=== PATIENT | male | born 1995 | race Caucasian/White ===

== ENCOUNTER 2020-07-16 17:04 | Emergency (ER) | payer OTHER, SELFPAY | END 2020-07-16 19:32 | disposition left against medical advice (07) | LOC: HO.ED 19:33 | PROVIDERS: Emergency Provider Emergency Medicine | DX: Z20.828 Contact with and (suspected) exposure to other viral communicable diseases (principal) ==

== ENCOUNTER 2020-07-17 08:28 | Outpatient (REF) | payer OTHER, SELFPAY ==
[2020-07-17 08:39] LABS: COVID-19 Test Positive (Negative)
== END 2020-07-17 08:29 | disposition home or self-care (01) ==
LOC: HO.LAB 08:28
PROVIDERS: Visit Provider Internal Medicine
DX: Z20.828 Contact with and (suspected) exposure to other viral communicable diseases (principal)
CPT/HCPCS: 87635; C9803

== ENCOUNTER 2021-11-20 08:37 | Outpatient (REF) | payer OTHER, SELFPAY ==
--- NOTE | ~2021-11-20 | XR_ITS ---
EXAMINATION: XR CHEST 2 VIEWS CLINICAL INFORMATION: History of sarcoidosis. COMPARISON: Chest radiograph dated 12/25/2020. TECHNIQUE: Frontal and lateral views of the chest were obtained. FINDINGS: The heart, great vessels, pulmonary vasculature and mediastinum are normal. The lungs show no focal infiltrate, effusion or pneumothorax. No abnormal interstitial markings noted. There is no mass, nodule or thoracic lymphadenopathy. There is no acute osseous abnormality. XR/XR chest 2V IMPRESSION: No active cardiopulmonary disease.
[2021-11-20 09:27] LABS: Estimated Average Glucose 103 mg/dL; Hemoglobin A1c % 5.2 %
[2021-11-20 09:51] LABS: Alanine Aminotransferase 145 U/L (0-40); Albumin Level 4.8 g/dL (3.5-5.0); Alkaline Phosphatase 76 U/L (39-117); Anion Gap 13 (12-20); Aspartate Amino Transferase 75 U/L (5-37); Bilirubin Total 1.4 mg/dL (0.0-1.0); Blood Urea Nitrogen 10 mg/dL (9-16); C Reactive Protein 0.12 mg/dL (< or = 0.50); Calcium 10.6 mg/dL (8.4-10.2); Carbon Dioxide 29 mmol/L (22-29); Chloride 101 mmol/L (96-108); Cholesterol 260 mg/dL; Estimated Glomerular Filt Rate > 60; Glucose Fasting 95 mg/dL (60-99); HDL Cholesterol 42 mg/dL; LDL Cholesterol Calculated 177 mg/dl; Potassium 4.6 mmol/L (3.3-5.1); Sodium 138 mmol/L (135-145); Total Protein 8.1 g/dL (6.5-8.0); Triglycerides 209 mg/dL
[2021-11-20 10:06] LABS: Erythrocyte Sedimentation Rate 3 MM/HR (0-15)
[2021-11-20 10:11] LABS: TSH reflex Free T4 49.32 uIU/mL (0.32-4.0)
[2021-11-20 11:13] LABS: Free T4 (Free Thyroxine) 0.85 ng/dL (0.71-1.85)
[2021-11-23 12:42] LABS: Thyroid Peroxidase Antibodies >900 IU/mL (<9)
[2021-11-25 13:56] LABS: Angiotensin Converting Enzyme 42.6 U/L (9-67)
== END 2021-11-20 08:38 | disposition home or self-care (01) ==
LOC: HO.LAB 08:37
PROVIDERS: PCP Physician Assistant; Visit Provider Physician Assistant
DX: E03.9 Hypothyroidism, unspecified (principal); D86.0 Sarcoidosis of lung; Z13.29 Encounter for screening for other suspected endocrine disorder; Z13.220 Encounter for screening for lipoid disorders
CPT/HCPCS: 36415; 71046; 80053; 80061; 82164; 83036; 84439; 84443; 85652; 86140; 86376

== ENCOUNTER → 2022-01-05 15:04 | Outpatient (BNVA) | payer OTHER, SELFPAY | PROVIDERS: PCP Physician Assistant; Visit Provider Internal Medicine Endocrinology, Diabetes & Metabolism | DX: E03.9 Hypothyroidism, unspecified (principal) ==

== ENCOUNTER 2022-07-06 16:53 | Outpatient (REF) | payer OTHER, SELFPAY ==
[2022-07-06 18:09] LABS: Free T4 (Free Thyroxine) 1.26 ng/dL (0.71-1.85); Thyroid Stimulating Hormone 3.29 uIU/mL (0.32-4.0)
== END 2022-07-06 16:54 | disposition home or self-care (01) ==
LOC: HO.LAB 16:53
PROVIDERS: PCP Physician Assistant; Visit Provider Internal Medicine Endocrinology, Diabetes & Metabolism
DX: E03.9 Hypothyroidism, unspecified (principal)
CPT/HCPCS: 36415; 84439; 84443

== ENCOUNTER 2024-03-21 13:33 | Outpatient (AMB) | payer BC, SELFPAY ==
[2024-03-21 13:35] VITALS: BP 138/88; PULSE 64; O2SAT 97; BMI 32.1
--- NOTE | 2024-03-21 13:35 | A.OFFPC_ITS ---
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 Required: No Accompanied by: Self / Same As Patient Allergies penicillin V Allergy (Unknown, Verified 03/21/24 13:48) RASH Penicillins [PENICILLINS] Allergy (Unknown, Verified 03/21/24 13:48) RASH Medication List - Last Reconciled 03/21/24 by Joo Bills PA-C dextroamphetamine-amphetamine 15 mg ER (Adderall XR) 15 mg PO DAILY 28 days levothyroxine (Synthroid) 150 mcg PO DAILY 30 days Tobacco use date assessed: 11/18/21 Dental Screening Dental Screen Date: 03/21/24 Did you have a dental visit in the last 12 months?: No Did you have a dental problem in the last 6 months where you did not have access to dental care?: No Was dental information given to patient?: Yes HPI Physical Exam HPI Details Patient is a 28 year-old male here today for annual physical.? Patient has a past medical history significant for hypothyroidism, sarcoidosis, ADHD. ADHD:? He does report being diagnosed with ADHD as a child did not agree with taking medication at the time.? He struggled in school. Interval history--> He feels he is not able to focus and concentrate for what he is reading which hinders his ability to past tests.. He? has trialed Strattera 80 mg though did not feel it helped him with his attention and focus.Has found that Adderall 15 mg had been effective for him though has been off of it for awhile as he has not needed to do much academic work. 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 .. Hypothyroidism: Patient continues on 150 mcg of levothyroxine. Most recent TSH has been stable in 2021. He reports he does feel sluggish and fatigued at times. Wondering about his testosterone. .. Laboratory Tests 11/20/21 07/06/22 08:52 17:01 TSH 49.32 H 3.29 Thyroid Peroxidase Ab >900 H [facility] Medical History Pulmonary sarcoidosis Surgical History No pertinent past surgical history Family History Father No problems noted. Mother No problems noted. Brother In good health Sister In good health Son In good health Social History Housing: House Alcohol intake: current Alcohol intake frequency: holidays/special occasions only Patient Tobacco Use Status: Former Tobacco user Tobacco use type: Cigarette e-Cigarette/Vaping Use: Former Use service: No Current occupational status: employed Current occupation: [employer] Cognitive needs: No Hearing needs: No Vision needs: No Questionnaire PHQ-9 Over the last 2 weeks, how often have you been bothered by any of the following problems? 1. Little interest or pleasure in doing things: not at all 2. Feeling down, depressed, or hopeless: not at all 3. Trouble falling or staying asleep, or sleeping too much: not at all 4. Feeling tired or having little energy: not at all 5. Poor appetite or overeating: not at all 6. Feeling bad about yourself - or that you are a failure or have let yourself or your family down: not at all 7. Trouble concentrating on things, such as reading the newspaper or watching television: not at all 8. Moving or speaking so slowly that other people could have noticed. Or the opposite - being so fidgety or restless that you have been moving around a lot more than usual: not at all 9. Thoughts that you would be better off or of hurting yourself in some way: not at all Total score: 0 Depression Screening Interpretation: Negative Depression Screening Done: Yes 24359 - PHQ-9 Billing: Yes Source: Developed by Drs. Navdeep Elias, Hailey Hammer, Rahul Kurtz and colleagues, with an educational denise from [employer]. Thrive Questionnaire Date Thrive assessed: 03/21/24 I am a: Patient What is your living situation today?: I have a steady place to live Within the past 12 months, did the food you bought not last and you didn't have the money to get more?: Never true Within the past 12 months, did you worry whether your food would run out before you got money to buy more?: Never true Do you have trouble paying for medicines?: No Do you have trouble getting transportation to medical appointments?: No Do you have trouble paying your heating and electricity bill?: No Do you have trouble taking care of your child, family member or friend?: No Do you have trouble with day-to-day activities such as bathing, preparing meals, shopping, managing finances, etc.?: No Are you currently unemployed and looking for a job?: No Are you interested in more education?: No Please select the resources that you would like help with: None Currently or been in a relationship where the following occur: No concerns rep orted THRIVE Score: 0 AUDIT C Alcohol Use Questionnaire (AUDIT-C) 1. How often do you have a drink containing alcohol?: Monthly or less 2. How many drinks containing alcohol do you have on a typical day when you are drinking?: 1 or 2 3. How often do you have six or more drinks on one occasion?: Never Total Score: 1 MARIANNE-7 AMB Questionnaire MARIANNE-7 Date MARIANNE - 7 assessed: 03/21/24 Feeling nervous, anxious, or on edge: 0 = Not at all Not being able to stop or control worryin = Not at all Worrying too much about different things: 0 = Not at all Trouble relaxin = Not at all Being so restless that it is hard to sit still: 0 = Not at all Becoming easily annoyed or irritable: 0 = Not at all Feeling afraid as if something awful might happen: 0 = Not at all Total MARIANNE-7 score (0-4 normal; 5-9 mild; 10-14 moderate; 15-21 severe): 0 Source: Developed by Drs. Navdeep Elias, Hailey Hammer, Rahul Kurtz and colleagues, with an educational denise from [employer]. MARIANNE-7 Assessment Billing MARIANNE-7 Assessment Tool: MARIANNE-7 Assessment 94786 Review of Systems Const Denies body aches, Denies chills, Denies excessive sweating, Denies fatigue, Denies fever(s) and Denies headache(s) Eyes Denies blurry vision ENT Denies dysphagia, Denies vertigo, Denies dizziness, Denies headache(s), Denies hearing loss and Denies tinnitus Card Denies chest pain, Denies chest pain with activity, Denies syncope, Denies irregular heart rhythm and Denies dyspnea Resp Denies chest congestion, Denies cough, Denies hemoptysis, Denies dyspnea and Denies wheezing GI Denies abdominal pain, Denies melena, Denies hematochezia, Denies coffee ground emesis, Denies dysphagia, Denies diarrhea, Denies nausea and Denies vomiting Denies difficulty urinating, Denies dysuria, Denies urinary frequency, Denies urinary hesitancy and Denies urinary urgency Musc Denies arthralgias, Denies limited range of motion, Denies muscle cramps and Denies muscle weakness Skin/Breast Denies rash and Denies skin ulcer Neuro Denies Abnormal speech present, Denies confusion, Denies vertigo, Denies dizziness, Denies syncope, Denies headache(s), Denies memory loss and Denies seizure-like activity Psych Denies anxiety, Denies confusion, Denies depression, Denies memory loss, Denies panic attacks and Denies paranoia Endo Denies excessive sweating, Denies fatigue, Denies flushing, Denies polydipsia and Denies polyuria Aller/Immun Denies wheezing Physical exam (Primary Care) Vital Signs: Last Vital Signs Pulse 64 03/21/24 13:35 BP 138/88 03/21/24 13:35 Pulse Ox 97 03/21/24 13:35 Oxygen Delivery Method Room Air 03/21/24 13:35 BMI result Body Mass Index 32.1 Tobacco/Smoking Status: Tobacco use Status Tobacco use date assessed 11/18/21 03/21/24 13:38 Patient Tobacco Use Status Former Tobacco user 03/21/24 13:38 Tobacco use type Cigarette 03/21/24 13:38 e-Cigarette/Vaping Use Former Use 03/21/24 13:38 PHQ-9: PHQ-9 Score PHQ-9: Total score 0 03/22/24 16:44 Depression Screening Interpretation: Negative Thrive Assessment: Date of Thrive Assessment Date Thrive assessed 03/21/24 03/21/24 13:41 Currently or been in a relationship where the following occur: No concerns reported Const General: cooperative, comfortable, no acute distress, alert and awake; No confusion Orientation/consciousness: oriented to person, oriented to place, patient oriented x3 and No confusion HENMT Head: Yes normocephalic Ears: external ears normal and TM's normal bilaterally Face and sinus: No sinus tenderness Mouth: Normal oral and palatal mucosa present and tongue normal Teeth and gingiva: dentition normal and gingiva normal Throat: Yes posterior oropharynx normal, Yes tonsils normal and Yes uvula midline Eyes Conjunctivae: conjunctivae normal Sclerae: sclerae normal Pupils: Equal, round and reactive pupils present EOM: EOMs intact bilaterally Direct Ophthalmoscopy: No no photophobia Neck Neck: Yes no lymphadenopathy, No tender and Yes no JVD Thyroid: Thyroid normal Carotids: no bruits Chest Chest palpation & inspection: no tenderness Resp Effort & Inspection: normal respiratory effort, no audible wheezes, not labored and no stridor Auscultation: no crackles, no rales, no rhonchi and no wheezes Cardio Jugular venous distension: no JVD Rate: regular rate, not bradycardic and not tachycardic Rhythm: regular rhythm Bruits: no carotid bruits Peripheral pulses: Peripheral pulses 2+ throughout GI Inspection: Yes normal to inspection, No abdominal wall ecchymosis and No visible herniation Palpation (GI): Soft to palpation, nontender, no guarding, not rigid and No hepatosplenomegaly present Auscultation: normoactive bowel sounds General: Yes no CVA tenderness Back/Spine/Pelvis Back: no CVA tenderness and No back tenderness Cervical Spine: cervical ROM normal Thoracic/Lumbar Spine: thoracic and lumbar spine normal to inspection, straight leg raise negative bilaterally, No thoraco-lumbar ROM limited and No lumbar spinal tenderness Skin Lesions: no lesions Rashes: no rashes Wounds: no wounds Neuro General: oriented to person, oriented to place, patient oriented x3, CN's II-XI intact bilaterally and No confusion Cranial nerves: Yes Equal, round and reactive pupils present and Yes Normal accommodation reflex present Cognition (Neuro): normal cognition Speech: No Abnormal speech present Gait exam (Neuro): Normal gait present Motor exam (neuro): 5/5 motor strength present throughout Extrem Right upper extremity: full ROM; no cyanosis Left upper extremity: full ROM; no cyanosis Right lower extremity: no edema Left lower extremity: no edema Psych Appearance: grossly normal Mental Status: mental status grossly normal Affect: normal affect Attitude: cooperative Thought process: Normal thought process present Assessment and Plan Assessment & Plan (1) Annual physical exam: Code(s): Z00.00 - Encounter for general adult medical examination without abnormal findi ngs (2) Hypothyroidism: Code(s): E03.9 - Hypothyroidism, unspecified Qualifiers: Hypothyroidism type: unspecified Qualified Code(s): E03.9 - Hypothyroidism, unspecified Plan: Patient continues on levothyroxine 150 mcg and feels great. Will continue to follow TSH to assure normal make adjustments in his levothyroxine dose accordingly.. (3) ADHD (attention deficit hyperactivity disorder): Code(s): F90.9 - Attention-deficit hyperactivity disorder, unspecified type Qualifiers: Attention deficit-hyperactivity disorder type: unspecified Qualified Code(s): F90.9 - Attention-deficit hyperactivity disorder, unspecified type Plan: Patient continues to use Adderall 15 mg on a p.r.n. basis to help him stay focused on his school work. (4) Borderline high cholesterol: Code(s): E78.9 - Disorder of lipoprotein metabolism, unspecified Plan: Patient's most recent lipid panels elevated likely secondary to have been uncontrolled hypothyroidism GERD will recheck lipids in 6 months. (5) Fatigue: Code(s): R53.83 - Other fatigue Qualifiers: Fatigue type: unspecified Qualified Code(s): R53.83 - Other fatigue Plan: Reports intermittent days of fatigue and sluggishness. Unclear if this is related to his thyroid dysfunction. Orders: Orders Lipid Panel 03/21/24 E78.9 - Disorder of lipoprotein metabolism, unspecified Complete Blood Count no Diff 03/21/24 Z13.1 - Encounter for screening for diabetes mellitus Testosterone, Free/Total 03/21/24 R53.83 - Other fatigue Comprehensive [place]. Panel Fast 03/21/24 Z13.1 - Encounter for screening for diabetes mellitus TSH reflex Free T4 03/21/24 E03.9 - Hypothyroidism, unspecified Medications: Refilled dextroamphetamine-amphetamine 15 mg ER (Adderall XR) 15 mg PO DAILY 28 caps 0RF 28 days F90.9 - Attention-deficit hyperactivity disorder, unspecified type Coding Level of Care Code Est Pt Prev Care 18-39y(36833) Diagnoses Annual physical exam Z00.00 Hypothyroidism, unspecified type E03.9 Hypothyroidism type: unspecified Attention deficit hyperactivity disorder (ADHD), unspecified ADHD type F90.9 Attention deficit-hyperactivity disorder type: unspecified Borderline high cholesterol E78.9 Fatigue, unspecified type R53.83 Fatigue type: unspecified Additional Codes MARIANNE-7 Assessment Billing - MARIANNE-7 Assessment Tool: MARIANNE-7 Assessment [id number] ([id number])
== END 2024-03-21 14:03 | disposition home or self-care (01) ==
PROVIDERS: PCP Physician Assistant; Visit Provider Physician Assistant
DX: Z00.00 Encounter for general adult medical examination without abnormal findings (principal); E03.9 Hypothyroidism, unspecified; F90.9 Attention-deficit hyperactivity disorder, unspecified type; E78.9 Disorder of lipoprotein metabolism, unspecified; R53.83 Other fatigue
CPT/HCPCS: 99395

== ENCOUNTER 2024-06-19 11:40 | Outpatient (REF) | payer BC, SELFPAY ==
[2024-06-19 12:26] LABS: Hematocrit 47.5 % (42.0-52.0); Mean Corpuscular HGB Conc 33.7 g/dl (31.0-36.0); Mean Corpuscular Hemoglobin 29.7 pg (27.0-33.0); Mean Corpuscular Volume 88.1 fL (80.0-98.0); Mean Platelet Volume 9.2 fL (9.4-12.4); Platelet Count 278 X10*3/uL (160-400); Red Blood Count 5.39 X10*6/uL (4.60-5.80); Red Cell Distribution Width 12.7 % (11.0-16.0)
[2024-06-19 12:53] LABS: Alanine Aminotransferase 58 U/L (0-40); Albumin Level 4.6 g/dL (3.5-5.0); Alkaline Phosphatase 69 U/L (39-117); Anion Gap 10 (12-20); Aspartate Amino Transferase 48 U/L (5-37); Bilirubin Total 0.8 mg/dL (0.0-1.0); Blood Urea Nitrogen 10 mg/dL (9-16); Carbon Dioxide 28 mmol/L (22-29); Chloride 104 mmol/L (96-108); Cholesterol 216 mg/dL (<200); Estimated Glomerular Filt Rate > 60; Glucose Fasting 86 mg/dL (60-99); HDL Cholesterol 47 mg/dL (>40); LDL Cholesterol Calculated 151 mg/dL (<100); Potassium 3.8 mmol/L (3.3-5.1); Sodium 138 mmol/L (135-145); Triglycerides 94 mg/dL (<150)
[2024-06-19 13:08] LABS: Total Protein 7.7 g/dL (6.5-8.0)
[2024-06-19 13:16] LABS: TSH reflex Free T4 2.62 uIU/mL (0.32-4.0)
[2024-06-23 16:58] LABS: Testosterone, Free 146.7 pg/mL (35.0-155.0); Testosterone, Total 635 ng/dL (250-1100)
== END 2024-06-19 11:41 | disposition home or self-care (01) ==
LOC: HO.LAB 11:40
PROVIDERS: PCP Physician Assistant; Visit Provider Physician Assistant
DX: E78.9 Disorder of lipoprotein metabolism, unspecified (principal); E03.9 Hypothyroidism, unspecified; R53.83 Other fatigue; Z13.1 Encounter for screening for diabetes mellitus
CPT/HCPCS: 36415; 80053; 80061; 84402; 84403; 84443; 85027

== ENCOUNTER 2024-06-20 14:05 | Outpatient (AMB) | payer BC, SELFPAY ==
[2024-06-20 14:17] VITALS: BP 126/80; PULSE 63; O2SAT 98; BMI 32.4
--- NOTE | 2024-06-20 14:17 | MHC.PC.OV ---
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 Patient has a past medical history significant for hypothyroidism, sarcoidosis, ADHD. ADHD:? He does report being diagnosed with ADHD as a child did not agree with taking medication at the time.? He struggled in school. Interval history--> H he had trialed Strattera 80 mg though did not feel it helped him with his attention and focus.Has found that Adderall 15 mg had been effective for him though has been off of it for awhile as he has not needed to do much academic work. 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 Hypothyroidism: Patient continues on 150 mcg of levothyroxine. Most recent TSH stable on current dose of levothyroxine. He reports he does feel sluggish and fatigued at times. Wondering about his testosterone. Laboratory Tests 11/07/19 11/20/21 06/19/24 11:20 08:52 11:56 RBC 5.39 Creatinine 1.02 AST 141 H 75 H 48 H Cholesterol 260 216 H TSH 2.62 PFSH Medical History Pulmonary sarcoidosis Surgical History No pertinent past surgical history Family History Father No problems noted. Mother No problems noted. Brother In good health Sister In good health Son In good health Social History Housing: House Alcohol intake: current Alcohol intake frequency: holidays/special occasions only Patient Tobacco Use Status: Former Tobacco user Tobacco use type: Cigarette e-Cigarette/Vaping Use: Former Use service: No Current occupational status: employed Current occupation: [employer] Cognitive needs: No Hearing needs: No Vision needs: No Questionnaire Thrive Questionnaire Date Thrive assessed: 03/21/24 Are you currently unemployed and looking for a job?: No MARIANNE-7 AMB Questionnaire MARIANNE-7 Date MARIANNE - 7 assessed: 03/21/24 Source: Developed by Drs. Navdeep Elias, Hailey Hammer, Rahul Kurtz and colleagues, with an educational denise from [employer]. Review of Systems Const Denies headache(s) Eyes Denies loss of vision ENT Denies vertigo, Denies dizziness, Denies headache(s) and Denies sore throat Card Denies chest pain, Denies leg edema and Denies lightheadedness Resp Denies cough, Denies hemoptysis and Denies wheezing GI Denies abdominal pain, Denies melena, Denies constipation, Denies diarrhea and Denies vomiting Denies dysuria, Denies urinary frequency and Denies urinary urgency Musc Denies arthralgias, Denies joint swelling, Denies numbness and Denies tingling Neuro Denies Abnormal speech present, Denies behavioral changes, Denies vertigo, Denies dizziness, Denies headache(s), Denies loss of vision, Denies memory loss, Denies numbness and Denies tingling Psych Denies anxiety, Denies behavioral changes, Denies depression, Denies memory loss and Denies panic attacks Ernst/Lymph Denies easy bleeding and Denies easy bruising Aller/Immun Denies wheezing Physical exam (Primary Care) Vital Signs: Last Vital Signs Pulse 63 06/20/24 14:17 BP 126/80 06/20/24 14:17 Pulse Ox 98 06/20/24 14:17 Oxygen Delivery Method Room Air 06/20/24 14:17 BMI result Body Mass Index 32.4 Tobacco/Smoking Status: Tobacco use Status Tobacco use date assessed 11/18/21 06/20/24 14:22 Patient Tobacco Use Status Former Tobacco user 06/20/24 14:22 Tobacco use type Cigarette 06/20/24 14:22 e-Cigarette/Vaping Use Former Use 06/20/24 14:22 Thrive Assessment: Date of Thrive Assessment Date Thrive assessed 03/21/24 06/20/24 14:22 Const General: healthy appearing, no acute distress, alert and awake Nutritional Appearance: well nourished Orientation/consciousness: oriented to person, oriented to place and oriented to time HENMT Ears: TM's normal bilaterally General nose exam: Normal nasal mucous membranes and turbinates present Eyes Conjunctivae: conjunctivae normal Sclerae: sclerae normal Pupils: Equal, round and reactive pupils present Neck Neck: Yes no lymphadenopathy and Yes no JVD Thyroid: Thyroid normal Carotids: no bruits Resp Effort & Inspection: normal respiratory effort and not tachypneic Auscultation: no crackles, no rales, no rhonchi and no wheezes Cardio Rate: regular rate Rhythm: regular rhythm Heart sounds: no murmurs and normal S1 and S2 GI Palpation (GI): Soft to palpation, nontender, no hepatomegaly and no splenomegaly Auscultation: normal bowel sounds Skin General skin exam: no rashes or lesions noted and dry skin Neuro General: oriented to person, oriented to place and oriented to time Cranial nerves: Yes Equal, round and reactive pupils present Speech: No Abnormal speech present Gait exam (Neuro): Normal gait present Motor exam (neuro): no tremor noted Extrem Right upper extremity: full ROM Left upper extremity: full ROM Right lower extremity: full ROM; no edema Left lower extremity: full ROM; no edema Psych Mental Status: mental status grossly normal Speech and movement: Normal speech and movement present Affect: normal affect Attitude: cooperative Thought process: Normal thought process present Office Procedures Flu Questionnaire Does the patient have a severe egg allergy?: No Immunizations Fluarix Triv [id number] (PF) 45 mcg (15 mcg x 3)/0.5 mL IM syringe Performing Provider: Joo Bills PA-C [facility] [place] [facility] Documented (not given) by: REGINO Purvis on 06/20/24 14:23 Reason Not Given: Patient Refused Coding Level of Care Code Est Pt Level 4 (24556) Diagnoses Attention deficit hyperactivity disorder (ADHD), unspecified ADHD type F90.9 Attention deficit-hyperactivity disorder type: unspecified Borderline high cholesterol E78.9 Hypothyroidism, unspecified type E03.9 Hypothyroidism type: unspecified Fatigue, unspecified type R53.83 Fatigue type: unspecified Assessment & Plan Assessment & Plan (1) ADHD (attention deficit hyperactivity disorder): Code(s): F90.9 - Attention-deficit hyperactivity disorder, unspecified type Category: Medical Qualifiers: Attention deficit-hyperactivity disorder type: unspecified Qualified Code(s): F90.9 - Attention-deficit hyperactivity disorder, unspecified type Plan: Patient reports he finds benefit stimulant ADHD medication. 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 (2) Borderline high cholesterol: Code(s): E78.9 - Disorder of lipoprotein metabolism, unspecified Category: Medical Plan: Most recent lipid panel showing much improved total cholesterol though still borderline high. He will work on lifestyle dietary modifications. (3) Hypothyroidism: Code(s): E03.9 - Hypothyroidism, unspecified Category: Medical Qualifiers: Hypothyroidism type: unspecified Qualified Code(s): E03.9 - Hypothyroidism, unspecified Plan: Patient's TSH has been stable on current dose of levothyroxine at 150 mcg. Will continue to follow TSH (4) Fatigue: Code(s): R53.83 - Other fatigue Category: Medical Qualifiers: Fatigue type: unspecified Qualified Code(s): R53.83 - Other fatigue Plan: Unclear what has caused patient's patient's intermittent fatigue. He still works full-time and does work out at the gym. No organic cause of his fatigue found in his labs at this time. ? Chronic fatigue syndrome Orders: Orders Influenza [id number] Immunization 06/20/24 Z23 - Encounter for immunization
== END 2024-06-20 14:41 | disposition home or self-care (01) ==
PROVIDERS: PCP Physician Assistant; Visit Provider Physician Assistant
DX: E78.9 Disorder of lipoprotein metabolism, unspecified (principal); F90.9 Attention-deficit hyperactivity disorder, unspecified type; E03.9 Hypothyroidism, unspecified; R53.83 Other fatigue

== ENCOUNTER → 2024-06-20 14:05 | Outpatient (BNVA) | payer BC, SELFPAY | PROVIDERS: PCP Physician Assistant; Visit Provider Physician Assistant | DX: F90.9 Attention-deficit hyperactivity disorder, unspecified type (principal); E78.9 Disorder of lipoprotein metabolism, unspecified; E03.9 Hypothyroidism, unspecified; R53.83 Other fatigue; Z79.899 Other long term (current) drug therapy | CPT/HCPCS: 90471 ==

== ENCOUNTER 2024-11-21 09:20 | Outpatient (AMB) | payer BC, SELFPAY ==
[2024-11-21 09:27] VITALS: BP 128/86; PULSE 67; TEMP 36.2; O2SAT 97; BMI 30.9
--- NOTE | 2024-11-21 09:27 | A.OFFPC_ITS ---
Vital Signs 11/21/24 09:27 Height 5 ft 11 in Weight 221 lb 6 oz BMI 30.9 BP 128/86 Blood Pressure Location Lt brachial Position Sitting Pulse 67 Pulse Source Pulse Oximeter Temp 97.1 F Temp Source Temporal Artery Scan Pulse Oximetry (%) 97 Oxygen Delivery Method Room Air Intake Visit Reasons: medication f/u Bookkeeping Assistant Required: No Accompanied by: Self / Same As Patient Allergies penicillin V Allergy (Unknown, Verified 11/21/24 09:53) RASH Penicillins [PENICILLINS] Allergy (Unknown, Verified 11/21/24 09:53) RASH Medication List - Last Reconciled 11/21/24 by Joo Bills PA-C dextroamphetamine-amphetamine 20 mg ER (Adderall XR) 20 mg PO DAILY 28 days levothyroxine (Synthroid) 150 mcg PO DAILY 30 days Tobacco use date assessed: 11/21/24 Dental Screening Dental Screen Date: 11/21/24 Did you have a dental visit in the last 12 months?: No Did you have a dental problem in the last 6 months where you did not have access to dental care?: No Was dental information given to patient?: Patient has dentist HPI medication f/u HPI Details Patient is a 29 year-old male here today for follow-up visit.? Patient has a past medical history significant for hypothyroidism, sarcoidosis, ADHD. ADHD:? He does report being diagnosed with ADHD as a child did not agree with taking medication at the time.? He struggled in school. Interval history--> H he had trialed Strattera 80 mg though did not feel it helped him with his attention and focus.Has found that Adderall 15 mg had been effective for him though has been off of it for awhile as he has not needed to do much academic work. .. Hypothyroidism: Patient continues on 150 mcg of levothyroxine. Most recent TSH stable on current dose of levothyroxine. 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 COUNTS INCLUDE 234 BEDS AT THE [facility] Medical History Pulmonary sarcoidosis Surgical History No pertinent past surgical history Family History Father No problems noted. Mother No problems noted. Brother In good health Sister In good health Son In good health Social History Housing: House Alcohol intake: current Alcohol intake frequency: holidays/special occasions only Patient Tobacco Use Status: Former Tobacco user e-Cigarette/Vaping Use: Former Use service: No Current occupational status: employed Current occupation: [employer] Cognitive needs: No Hearing needs: No Vision needs: No Questionnaire PHQ-9 Over the last 2 weeks, how often have you been bothered by any of the following problems? 1. Little interest or pleasure in doing things: not at all 2. Feeling down, depressed, or hopeless: not at all 3. Trouble falling or staying asleep, or sleeping too much: not at all 4. Feeling tired or having little energy: not at all 5. Poor appetite or overeating: not at all 6. Feeling bad about yourself - or that you are a failure or have let yourself or your family down: not at all 7. Trouble concentrating on things, such as reading the newspaper or watching television: not at all 8. Moving or speaking so slowly that other people could have noticed. Or the opposite - being so fidgety or restless that you have been moving around a lot more than usual: not at all 9. Thoughts that you would be better off or of hurting yourself in some way: not at all Total score: 0 Depression Screening Interpretation: Negative Depression Screening Done: Yes 92194 - PHQ-9 Billing: Yes Source: Developed by Drs. Navdeep Elias, Hailey Hammer, Rahul Kurtz and colleagues, with an educational denise from [employer]. Thrive Questionnaire Date Thrive assessed: 11/21/24 I am a: Patient What is your living situation today?: I have a steady place to live Within the past 12 months, did the food you bought not last and you didn't have the money to get more?: Never true Within the past 12 months, did you worry whether your food would run out before you got money to buy more?: Never true Do you have trouble paying for medicines?: No Do you have trouble getting transportation to medical appointments?: No Do you have trouble paying your heating and electricity bill?: No Do you have trouble taking care of your child, family member or friend?: No Do you have trouble with day-to-day activities such as bathing, preparing meals, shopping, managing finances, etc.?: No Are you currently unemployed and looking for a job?: No Are you interested in more education?: No Please select the resources that you would like help with: None Currently or been in a relationship where the following occur: No concerns reported THRIVE Score: 0 AUDIT C Alcohol Use Questionnaire (AUDIT-C) 1. How often do you have a drink containing alcohol?: Monthly or less 2. How many drinks containing alcohol do you have on a typical day when you are drinking?: 1 or 2 3. How often do you have six or more drinks on one occasion?: Never Total Score: 1 MARIANNE-7 AMB Questionnaire MARIANNE-7 Date MARIANNE - 7 assessed: 11/21/24 Feeling nervous, anxious, or on edge: 0 = Not at all Not being able to stop or control worryin = Not at all Worrying too much about different things: 0 = Not at all Trouble relaxin = Not at all Being so restless that it is hard to sit still: 0 = Not at all Becoming easily annoyed or irritable: 0 = Not at all Feeling afraid as if something awful might happen: 0 = Not at all Total MARIANNE-7 score (0-4 normal; 5-9 mild; 10-14 moderate; 15-21 severe): 0 Source: Developed by Drs. Navdeep Elias, Hailey Hammer, Rahul Kurtz and colleagues, with an educational denise from [employer]. MARIANNE-7 Assessment Billing MARIANNE-7 Assessment Tool: MARIANNE-7 Assessment 27011 Review of Systems Const Denies headache(s) Eyes Denies loss of vision ENT Denies vertigo, Denies dizziness, Denies headache(s) and Denies sore throat Card Denies chest pain, Denies leg edema and Denies lightheadedness Resp Denies cough, Denies hemoptysis and Denies wheezing GI Denies abdominal pain, Denies melena, Denies constipation, Denies diarrhea and Denies vomiting Denies dysuria, Denies urinary frequency and Denies urinary urgency Musc Denies arthralgias, Denies joint swelling, Denies numbness and Denies tingling Neuro Denies Abnormal speech present, Denies behavioral changes, Denies vertigo, Denies dizziness, Denies headache(s), Denies loss of vision, Denies memory loss, Denies numbness and Denies tingling Psych Denies anxiety, Denies behavioral changes, Denies depression, Denies memory loss and Denies panic attacks Ernst/Lymph Denies easy bleeding and Denies easy bruising Aller/Immun Denies wheezing Physical exam (Primary Care) Vital Signs: Last Vital Signs Temp 97.1 F 11/21/24 09:27 Pulse 67 11/21/24 09:27 BP 128/86 11/21/24 09:27 Pulse Ox 97 11/21/24 09:27 Oxygen Delivery Method Room Air 11/21/24 09:27 BMI result Body Mass Index 30.9 Tobacco/Smoking Status: Tobacco use Status Tobacco use date assessed 11/21/24 11/21/24 09:29 Patient Tobacco Use Status Former Tobacco user 11/21/24 09:29 Tobacco use type Cigarette 11/21/24 09:29 e-Cigarette/Vaping Use Former Use 11/21/24 09:29 PHQ-9: PHQ-9 Score PHQ-9: Total score 0 11/21/24 09:29 Depression Screening Interpretation: Negative Thrive Assessment: Date of Thrive Assessment Date Thrive assessed 11/21/24 11/21/24 09:29 Currently or been in a relationship where the following occur: No concerns reported Const General: healthy appearing, no acute distress, alert and awake Nutritional Appearance: well nourished Orientation/consciousness: oriented to person, oriented to place and oriented to time [facility] Ears: TM's normal bilaterally General nose exam: Normal nasal mucous membranes and turbinates present Eyes Conjunctivae: conjunctivae normal Sclerae: sclerae normal Pupils: Equal, round and reactive pupils present Neck Neck: Yes no lymphadenopathy and Yes no JVD Thyroid: Thyroid normal Carotids: no bruits Resp Effort & Inspection: normal respiratory effort and not tachypneic Auscultation: no crackles, no rales, no rhonchi and no wheezes Cardio Rate: regular rate Rhythm: regular rhythm Heart sounds: no murmurs and normal S1 and S2 GI Palpation (GI): Soft to palpation, nontender, no hepatomegaly and no splenomegaly Auscultation: normal bowel sounds Skin General skin exam: no rashes or lesions noted and dry skin Neuro General: oriented to person, oriented to place and oriented to time Cranial nerves: Yes Equal, round and reactive pupils present Speech: No Abnormal speech present Gait exam (Neuro): Normal gait present Motor exam (neuro): no tremor noted Extrem Right upper extremity: full ROM Left upper extremity: full ROM Right lower extremity: full ROM; no edema Left lower extremity: full ROM; no edema Psych Mental Status: mental status grossly normal Speech and movement: Normal speech and movement present Affect: normal affect Attitude: cooperative Thought process: Normal thought process present Coding Level of Care Code Est Pt Level 4 (76910) Diagnoses Attention deficit hyperactivity disorder (ADHD), unspecified ADHD type F90.9 Attention deficit-hyperactivity disorder type: unspecified Borderline high cholesterol E78.9 Hypothyroidism, unspecified type E03.9 Hypothyroidism type: unspecified Additional Codes MARIANNE-7 Assessment Billing - MARIANNE-7 Assessment Tool: MARIANNE-7 Assessment 63291 ([id number]) PHQ-9 - 47997 - PHQ-9 Billing: Yes ([id number]) Assessment & Plan Assessment & Plan (1) ADHD (attention deficit hyperactivity disorder): Code(s): F90.9 - Attention-deficit hyperactivity disorder, unspecified type Category: Medical Qualifiers: Attention deficit-hyperactivity disorder type: unspecified Qualified Code(s): F90.9 - Attention-deficit hyperactivity disorder, unspecified type Plan: Patient reports he finds benefit stimulant ADHD medication. 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 (2) Borderline high cholesterol: Code(s): E78.9 - Disorder of lipoprotein metabolism, unspecified Category: Medical Plan: Most recent lipid panel showing much improved total cholesterol though still borderline high. He will work on lifestyle dietary modifications. (3) Hypothyroidism: Code(s): E03.9 - Hypothyroidism, unspecified Category: Medical Qualifiers: Hypothyroidism type: unspecified Qualified Code(s): E03.9 - Hypothyroidism, unspecified Plan: Patient's TSH has been stable on current dose of levothyroxine at 150 mcg. Will continue to follow TSH Orders: Orders Comprehensive [place]. Panel Fast Today Z13.1 - Encounter for screening for diabetes mellitus Lipid Panel Today E78.9 - Disorder of lipoprotein metabolism, unspecified Complete Blood Count no Diff Today Z13.1 - Encounter for screening for diabetes mellitus TSH reflex Free T4 Today E03.9 - Hypothyroidism, unspecified
== END 2024-11-21 10:14 | disposition home or self-care (01) ==
LOC: HO.HMCH 09:20
PROVIDERS: PCP Physician Assistant; Visit Provider Physician Assistant
DX: F90.9 Attention-deficit hyperactivity disorder, unspecified type (principal); E78.9 Disorder of lipoprotein metabolism, unspecified; E03.9 Hypothyroidism, unspecified

== ENCOUNTER → 2024-11-21 09:20 | Outpatient (BNVA) | payer BC, SELFPAY | PROVIDERS: PCP Physician Assistant; Visit Provider Physician Assistant | DX: F90.9 Attention-deficit hyperactivity disorder, unspecified type (principal); E78.9 Disorder of lipoprotein metabolism, unspecified; E03.9 Hypothyroidism, unspecified; Z79.899 Other long term (current) drug therapy | CPT/HCPCS: 96127 ==